=== PATIENT | female | born 1960 | race Caucasian/White ===

== ENCOUNTER 2017-06-20 11:26 | Outpatient (CLI) | payer BC ==
[2017-06-20 12:33] LABS: Hematocrit 35.7 % (36.0-47.0); Macrocytosis MODERATE=16-30 cells (100X) (0-5/hpf); Mean Platelet Volume 6.5 fL (7.4-10.4); Neutrophil 51 % (42-75); Reactive Lymphocytes 1 % (0-10); Red Blood Cell (RBC) Count 3.42 mill/uL (4.20-5.40); White Blood Cell (WBC) Count 4.1 thou/uL (4.8-10.8)
[2017-06-20 12:40] LABS: Anion Gap 8 mmol/L (10-20); BUN (Urea Nitrogen) 14 mg/dL (9.8-20.1); Calc. Creatinine Clearance 0 mL/min (70-130); Calcium 9.4 mg/dL (7.8-10.44); Carbon Dioxide 33 mmol/L (22-29); Chloride 102 mmol/L (98-107); Estimated GFR-MDRD Greater than 90
== END 2017-06-20 11:27 | disposition home or self-care (01) ==
LOC: LABBT 11:26
PROVIDERS: ATTEND Surgery
DX: Z01.812 Encounter for preprocedural laboratory examination (principal); C50.919 Malignant neoplasm of unspecified site of unspecified female breast
CPT/HCPCS: 80048; 85025

== ENCOUNTER 2017-06-21 06:04 | Day surgery (SDC) | payer BC ==
[2017-06-21] MEDS ORDERED: Midazolam HCl 2 mg/2 ml Vial ONE (06:36)
[2017-06-21] MEDS ORDERED: Fentanyl 100 MCG/2 ML VIAL ONE ×2 (06:36)
[2017-06-21] MEDS ORDERED: Clindamycin/D5W 900 mg/50 ml Premix Bag ONE (07:14)
[2017-06-21] MEDS ORDERED: Levofloxacin 500 mg/D5W 100 ml Premix Bag ONE (07:15)
[2017-06-21] MEDS ORDERED: Bupivacaine PF 0.5% 30 ML VIAL ONE (07:39)
[2017-06-21] MEDS ORDERED: Ketorolac Tromethamine 30 MG/ML VIAL ONE (07:40)
[2017-06-21] MEDS ORDERED: Metoclopramide HCl 10 MG/2 ML VIAL ONE (07:40)
[2017-06-21] MEDS ORDERED: diphenhydrAMINE 50 MG/ML VIAL ONE (07:40)
[2017-06-21] MEDS ORDERED: Dexamethasone 20 MG/5 ML VIAL ONE (07:40)
[2017-06-21] MEDS ORDERED: Propofol 200 MG/20 ML VIAL ONE (07:40)
[2017-06-21] MEDS ORDERED: ePHEDrine/0.9% NaCl/PF SYRINGE 50 mg/10 ml ONE (07:40)
[2017-06-21] MEDS ORDERED: Ondansetron HCl/PF 4 MG/2 ML Vial ONE (07:40)
[2017-06-21] MEDS ORDERED: Lidocaine 1% PF 5 ML VIAL ONE (07:40)
[2017-06-21] MEDS ORDERED: Dextrose 50% Abboject 50 ML SYRINGE SLOW IVP PRN (11:17)
[2017-06-21] MEDS ORDERED: hydrALAZINE 20 MG/ML VIAL SLOW IVP PRN (11:17)
[2017-06-21] MEDS ORDERED: Dextrose 5% in Water 1,000 ML IV PRN (11:17)
[2017-06-21] MEDS ORDERED: Ondansetron HCl/PF 4 MG/2 ML Vial IVP PRN (11:17)
[2017-06-21] MEDS ORDERED: Promethazine HCl 25 MG/ML VIAL IM PRN (11:17)
--- NOTE | 2017-06-21 12:26 | OP ---
DATE OF PROCEDURE: 06/21/2017 PREOPERATIVE DIAGNOSIS: Right breast cancer, locally invasive, status post lumpectomy with positive margins and subsequent chemotherapy. POSTOPERATIVE DIAGNOSIS: Right breast cancer, locally invasive, status post lumpectomy with positiv e margins and subsequent chemotherapy. PROCEDURE: Bilateral simple mastectomy. SURGEON: Asad Stockton M.D. ANESTHESIA: General. ESTIMATED BLOOD LOSS: Minimal. COMPLICATIONS: None. SPECIMEN: Right and left breast marked with two short superior, one long lateral and sent to path f or final diagnosis. INDICATION: The patient is a 56-year-old female who had previously presented with core biopsy prove n lobular carcinoma of the right breast. She underwent lumpectomy after needle localization. Lumpe ctomy revealed multiple positive margins. She was also found to have multiple lymph nodes positive in her right axilla on her axillary node dissection. A sentinel node biopsy had failed given the ex tent of malignant disease in the axilla. She subsequently underwent chemotherapy prior to this comp letion mastectomy. TECHNIQUE: The patient was taken to the operating room and placed supine on the table. After gener al anesthetic was obtained, bilateral chest were prepped and draped in a sterile fashion. An ellipt ical incision was used to ellipse out the nipple areolar complex on the left. Flaps are raised supe rior to the clavicle, medial to the sternum, inferior to the inframammary fold, lateral to latissimu s dorsi. The breast tissue was taken off the chest with the pectoralis fascia. The muscle was left intact underneath. Meticulous hemostasis was obtained. The wound was irrigated. A 19 round drain brought out through a separate stab incision and sewn in place using silk. The mastectomy site was closed using 3-0 Vicryl, 4-0 Monocryl, and Dermabond. Similar elliptical incision was used to perf orm on the right. The previous lumpectomy scar was excised with the specimen and again flaps were r aised inferior to inframammary fold, laterally to the latissimus dorsi, superior to the clavicle and medially to the sternum. The patient's previous MediPort was encountered in the upper flap and thi s was removed from underneath. The tunnel going up towards the neck was oversewn using Vicryl sutur e. Again, the breast was taken off the chest wall, taking the fascia with it, but leaving the muscl e intact underneath. The right mastectomy cavity is irrigated using sterile solution. A 19 round d rain brought out through a separate stab incision and sewn in place using silk. The wound was close d using 3-0 Vicryl, 4-0 Monocryl, and Dermabond. The patient was en route to recovery in stable con dition. All instrument counts, needle counts, and lap counts were correct.
[2017-06-21] MEDS: D5 1/2 NS w/20 mEq KCL 1,000 ML IV SCH (13:18)
[2017-06-21] MEDS ORDERED: Fentanyl 5000 MCG/250 ML CADD IV PRN (13:53)
[2017-06-21] MEDS ORDERED: Naloxone HCl 0.4 mg/ml Vial IV PRN (13:53)
[2017-06-21 16:14] VITALS: BMI 27.6
[2017-06-21] MEDS: Acetaminophen 325 MG TAB PO SCH ×2 (18:12→23:03)
[2017-06-21] MEDS: Famotidine 20 MG TAB PO SCH ×2 (22:18→22:25)
[2017-06-21] MEDS ORDERED: diphenhydrAMINE 50 MG/ML VIAL IVP PRN (22:50)
[2017-06-21] MEDS ORDERED: diphenhydrAMINE 25 MG CAP PO PRN (22:50)
[2017-06-22] MEDS: D5 1/2 NS w/20 mEq KCL 1,000 ML IV SCH (02:27)
[2017-06-22] MEDS: Acetaminophen 325 MG TAB PO SCH (06:43)
[2017-06-22 08:37] VITALS: BP 113/75; TEMP 97.8
[2017-06-22] MEDS: Famotidine 20 MG TAB PO SCH ×2 (09:32→09:34)
[2017-06-22] MEDS ORDERED: HYDROcodone/Acetaminophen 10/325 mg Tablet PO PRN ×2 (09:47)
== END 2017-06-22 11:33 | disposition home or self-care (01) ==
LOC: SDC 06:04 → SURG A 09:41 → SDC 06-22 11:33
PROVIDERS: ATTEND Surgery
PROC: 0JPT0WZ Removal of Totally Implantable Vascular Access Device from Trunk Subcutaneous Tissue and Fascia, Open Approach (ICD-10-PCS; principal; 2017-06-22)
PROC: 0HBV0ZZ Excision of Bilateral Breast, Open Approach (ICD-10-PCS; principal; 2017-06-22)
DX: C50.911 Malignant neoplasm of unspecified site of right female breast (principal); I10 Essential (primary) hypertension; M19.90 Unspecified osteoarthritis, unspecified site; Z90.710 Acquired absence of both cervix and uterus; Z98.84 Bariatric surgery status; Z98.890 Other specified postprocedural states; Z82.49 Family history of ischemic heart disease and other diseases of the circulatory system; Z80.1 Family history of malignant neoplasm of trachea, bronchus and lung
CPT/HCPCS: 88307; J0131; J1100; J1200; J1885; J1956; J2001; J2250; J2405; J2704; J2765; J3010; J3490; S0020

== ENCOUNTER 2017-11-02 11:31 | Day surgery (SDC) | payer BC, OTHER ==
[2017-11-01 12:11] VITALS: BMI 26.9
[2017-11-02] MEDS ORDERED: Sodium Chloride 0.9% 20 ML ONE (11:55)
[2017-11-02] MEDS ORDERED: EPINEPHrine 1 MG/ML AMP ONE ×2 (11:55→15:32)
[2017-11-02] MEDS ORDERED: Gentamicin 80 MG/2 ML VIAL ONE (11:55)
[2017-11-02] MEDS ORDERED: Bupivacaine/Epinephrine 0.25% 30 ML VIAL ONE (11:55)
[2017-11-02] MEDS ORDERED: Heparin 5,000 UNITS/ML VIAL ONE (11:59)
[2017-11-02] MEDS ORDERED: CEFAZOLIN/Water 2 GM/20 ML SYRINGE ONE (12:17)
[2017-11-02] MEDS ORDERED: Fentanyl 250 MCG/5 ML VIAL ONE ×2 (12:25→13:32)
[2017-11-02] MEDS ORDERED: Midazolam HCl 2 mg/2 ml Vial ONE (12:25)
[2017-11-02] MEDS ORDERED: Fentanyl 100 MCG/2 ML VIAL IV PRN (12:38)
[2017-11-02] MEDS ORDERED: Ondansetron HCl/PF 4 MG/2 ML Vial IVP PRN (12:38)
[2017-11-02] MEDS ORDERED: HYDROcodone/Acetaminophen 10/325 mg Tablet PO PRN ×2 (12:38)
[2017-11-02] MEDS ORDERED: Ropivacaine 0.2% 550 ML 550 ML NERVE BLCK SCH ×2 (12:38→12:45)
[2017-11-02] MEDS ORDERED: Zolpidem Tartrate 5 MG TAB PO PRN (12:38)
[2017-11-02] MEDS ORDERED: traMADol HCl 50 MG TAB PO PRN ×2 (12:38)
[2017-11-02] MEDS ORDERED: Promethazine HCl 25 MG/ML VIAL IM PRN (12:38)
[2017-11-02] MEDS ORDERED: Ropivacaine 0.2% HCl/PF 20 ML ONE ×2 (14:02)
[2017-11-02] MEDS ORDERED: Lidocaine 1% (PF) 30 ML VIAL ONE (15:32)
[2017-11-02] MEDS ORDERED: Bupivacaine 0.25% HCL 30 ML VIAL ONE (15:32)
[2017-11-02] MEDS ORDERED: Bacitracin Zinc Ointment 30 gm TUBE ONE (15:58)
[2017-11-02] MEDS ORDERED: HYDROcodone/Acetaminophen 5/325 mg Tablet ONE (20:41)
--- NOTE | 2017-11-02 22:03 | OP ---
DATE OF PROCEDURE: 11/02/2017 PREOPERATIVE DIAGNOSES: 1. Breast cancer. 2. Status post bilateral mastectomy. PROCEDURE: Bilateral breast augmentation. OPERATIVE FINDINGS: 1. Right breast implant, Laura Reyes reference number # [id number], serial number #[id number]. 2. Left breast implant, Laura Reyes reference number #[id number], serial number #[id number]. 3. Breast reconstruction ended at 1555 hours. PROCEDURE IN DETAIL: Following induction of adequate anesthesia, the patient was prepped and draped in the usual sterile fashion in the supine position. Attention was first turned to the right breast. An inframammary crease incision was made. Dissection was carried sharply down through the subcutan eous tissue to the underlying pectoralis fascia. The muscle was incised and then inspected. There d id not appear to be any visible radiation damage to the muscle. It was supple. A submuscular pocket was then elected to be created. An adequate submuscular pocket was created with release of the infe rior attachments of the pectoralis major muscle. On the right side, hemostasis included clipping one large intercostal foot orthopedist. The pocket was copiously irrigated and inspected for meticulous hemos tasis prior to placement of sizer. The sizer was used to determine what implant could be what it was the best implant for the patient. The above was selected. Similar procedure was done on the contra lateral left side. Same size implant was chosen. Prior to placement of the implants, the pockets we re copiously irrigated with dilute antibiotic solution followed by dilute Betadine solution. The ski n barrier was placed. New gloves were donned prior to placement of the implant. The pockets were re inspected for meticulous hemostasis prior to closure with 3-0 PDS suture and 3-0 Monocryl suture. De rmabond dressing was placed.
--- NOTE | 2017-11-03 00:31 | OP ---
DATE OF PROCEDURE: 11/02/2017 PREOPERATIVE DIAGNOSES: 1. Massive weight loss. 2. Facial aging. PROCEDURE: Facelift. PROCEDURE IN DETAIL: At the conclusion of the breast reconstruction at 1555, the facelift was begun. Due to the patient's massive weight loss, a direct neck lift approach was chosen for her cervical l axity. Ellipse of skin was excised from the midline neck. A Z-plasty was designed elevating the ski n in the plane just above the platysma. The flaps were transposed and then inset using 3-0 Monocryl suture. Skin edges were closed with 3-0 Prolene suture after the field was copiously irrigated and i nspected for meticulous hemostasis. Attention was turned to the cheek portion of the lower facelift. A preauricular incision was made. Care was taken to elevate a subcutaneous flap. This mass was then plicated with a loop to the jowls using 3-0 Ethibond suture. A lateral SMAS plication was then performed using interrupted and running 3-0 PDS suture. The excess skin was marked and excised. The skin flap was inset using 4-0 Monocryl suture and 6-0 Prolene suture. The patient tolerated the procedure well. A similar procedure was d one on each side. Prior to closure, drains were placed. The field was copiously irrigated and inspe cted for meticulous hemostasis.
== END 2017-11-02 21:47 | disposition home or self-care (01) ==
LOC: SDC 11:31
PROVIDERS: ATTEND Plastic Surgery
PROC: 0W060ZZ Alteration of Neck, Open Approach (ICD-10-PCS; principal; 2017-11-02)
PROC: 0H0V0JZ Alteration of Bilateral Breast with Synthetic Substitute, Open Approach (ICD-10-PCS; principal; 2017-11-02)
DX: Z41.1 Encounter for cosmetic surgery (principal); Z88.0 Allergy status to penicillin; Z90.13 Acquired absence of bilateral breasts and nipples; Z85.3 Personal history of malignant neoplasm of breast
CPT/HCPCS: A4216; A4306; J0131; J0171; J1580; J1644; J2001; J2250; J2795; J3010; J3370; J3490; S0020

== ENCOUNTER 2017-11-28 16:48 | Observation (INO) | payer BC ==
[2017-11-28] MEDS ORDERED: diphenhydrAMINE 50 MG/ML VIAL ONE (19:13)
[2017-11-28] MEDS ORDERED: Metoclopramide HCl 10 MG/2 ML VIAL ONE (19:13)
[2017-11-28 22:52] VITALS: BMI 25.3
[2017-11-28] MEDS ORDERED: Acetaminophen 325 MG TAB PO PRN (23:04)
[2017-11-28] MEDS ORDERED: Ondansetron HCl/PF 4 MG/2 ML Vial IVP PRN (23:04)
[2017-11-28] MEDS ORDERED: Ondansetron ODT 4 MG TAB SL PRN (23:04)
[2017-11-29] MEDS ORDERED: Calcium Carbonate 500 MG ChewTAB PO PRN (01:57)
[2017-11-29] MEDS ORDERED: Acetaminophen 325 MG TAB PO PRN (01:57)
[2017-11-29] MEDS ORDERED: Ondansetron ODT 4 MG TAB PO PRN (01:57)
[2017-11-29] MEDS ORDERED: Ondansetron HCl/PF 4 MG/2 ML Vial IVP PRN (01:57)
[2017-11-29] MEDS ORDERED: Senokot 8.6 MG TAB PO PRN (01:57)
[2017-11-29] MEDS ORDERED: cloNIDine 0.1 MG TAB PO PRN ×2 (02:02→02:05)
--- NOTE | 2017-11-29 02:24 | HP ---
DATE OF ADMISSION: 11/28/2017. Patient was seen and examined on 11/28/17 PRIMARY CARE PHYSICIAN: Dr. Mills. PRIMARY ONCOLOGIST: Dr. Stapleton. CHIEF COMPLAINT: Stroke-like symptoms. HISTORY OF PRESENT ILLNESS: Patient is a 57-year-old female with breast cancer who presented to the emergency room with 3-day onset of stroke-like symptoms. She was unable to move the right side of her tongue. She also had some headache that was more or less constant on the right side without any aggravating or relieving factor. No double vision, blurring of vision, facial asymmetry, weakness, numbness of any of her extremities reported. She denies any seizures, photophobia, phonophobia, increased lacrimation, seizure, tongue biting or urinary or bladder incontinence. No chest pain, palpitations, nausea , vomiting, lightheadedness or syncope reported. In the emergency room, her initial vital signs showed temperature 98.5, respirations 18, pulse rate of 86 with a blood pressure of 130/110. CT scan of the brain at [facility] was consistent with possible metastatic disease. There were no intracranial findings. She received 600 mg of Motrin in the Emergency Room and was transferred to this facility for hospital admission. PAST MEDICAL HISTORY: Breast cancer. PAST SURGICAL HISTORY: 1. Gastric sleeve. 2. Bladder mesh. 3. Facial lift. 4. Bilateral mastectomy followed by augmentation. 5. Hysterectomy. 6. Gastric surgery. ALLERGIES: PENICILLIN. CURRENT HOME MEDICATIONS: Anastrozole 1 mg daily, Lasix 20 mg daily, ranitidine 150 mg as needed, tizanidine as needed. SOCIAL HISTORY: Patient currently lives at home. No smoking, daily alcohol or drug use reported. She drinks alcohol socially. FAMILY HISTORY: Negative for premature coronary artery disease. REVIEW OF SYSTEMS: The following complete review of systems was negative, unless otherwise mentioned in the HPI or below: Constitutional: Weight loss or gain, ability to conduct usual activities. Skin: Rash, itching. Eyes: Double vision, pain. ENT/Mouth: Nose bleeding, neck stiffness, pain, tenderness. Cardiovascular: Palpitations, dyspnea on exertion, orthopnea. Respiratory: Shortness of breath, wheezing, cough, hemoptysis, fever or night sweats. Gastrointestinal: Poor appetite, abdominal pain, heartburn, nausea, vomiting, constipation, or diarrhea. Genitourinary: Urgency, frequency, dysuria, nocturia. Musculoskeletal: Pain, swelling. Neurologic/Psychiatric: Anxiety, depression. Allergy/Immunologic: Skin rash, bleeding tendency. PHYSICAL EXAMINATION: VITAL SIGNS: As discussed above. Her blood pressure at this time is 120/75. GENERAL: A 57-year-old female in no apparent distress. HEENT: Head is atraumatic, normocephalic. Sclerae are anicteric. Moist mucous membranes. No oral lesion. NECK: Supple, no JVD, no carotid bruit. LUNGS: Clear to auscultation bilaterally, no wheezing, rales or rhonchi. HEART: S1, S2 present. Regular rate and rhythm. No murmur, rubs, or gallops appreciated. ABDOMEN: Soft, nontender, bowel sounds present. No rebound or guarding. EXTREMITIES: No edema or calf tenderness. NEUROLOGIC: Cranial nerves II-XII were normal on examination except for some difficulty moving the tongue to the right. She denies any sensory deficits. Power was 5/5 in all extremities. Sensation to touch was normal bilaterally. PSYCHIATRIC: The patient is alert, awake, oriented x3. Normal affect. SKIN: Warm and dry. LYMPH NODES: No palpable lymph nodes in the neck. PERIPHERAL VASCULAR: Radial pulses palpable bilaterally. MUSCULOSKELETAL: No joint swelling or tenderness. LABORATORY FINDINGS: CBC showed WBC 5.3 with hemoglobin 12.8, MCV was elevated at 101, platelets 150. Chemistries showed sodium 142, potassium 4.5, chloride 105, bicarbonate 29, BUN 10, creatinine 0.63. IMAGING: CT scan of the brain by my review as discussed above. There were no intracranial masses appreciated. EKG by my review showed sinus rhythm without significant ST-T wave changes. IMPRESSION: 1. Suspected transient ischemic attack versus symptoms secondary to metastatic disease in the brain. 2. History of breast cancer status post bilateral mastectomy. 3. Back pain, currently on tizanidine per PCP. 4. Elevated blood pressure. Her blood pressure improved without any intervention. 5. Headache, probably secondary to suspected brain mets. PLAN: The patient will be monitored in the stroke unit. We will obtain MRI of the brain with the contrast. Depending on the MRI, we will either consult Neurology or Oncology. We will start her on low dose aspirin. Fasting lipid profile will be obtained. Plan of care was discussed with the patient. She stated understanding. Echocardiogram will be obtained as well. [facility]ITALAnna
[2017-11-29] MEDS: HYDROcodone/Acetaminophen 5/325 mg Tablet PO PRN ×4 (04:54→20:21)
[2017-11-29 05:54] LABS: Cardiac Risk 2.7 (Less than 4.5)
[2017-11-29] MEDS ORDERED: Aspirin 81 mg Enteric Coated Tablet PO SCH (09:00)
[2017-11-29] MEDS ORDERED: ALPRAZolam 0.25 MG TAB PO SCH (10:00)
--- NOTE | 2017-11-29 13:46 | CON ---
DATE OF CONSULTATION: 11/29/2017 REASON FOR CONSULTATION: Breast cancer. HISTORY OF PRESENT ILLNESS: Ms. Metzger is a pleasant 57-year-old female who recently completed jane atment for invasive lobular carcinoma of the right breast. She completed chemotherapy with Adriamyci n, Cytoxan and Taxol, and had a bilateral mastectomy in 06/2017. She had radiation post-surgical and was started on Arimidex. She had breast reconstruction with the facelift on 11/02/2017. She states she has had facial numbness on the right side since the surgery. Approximately 5 days ago, she bega n to have right tongue dysfunction, having difficulty with swallowing foods and controlling her secre tions. She also developed a headache that was unresponsive to Motrin, so she presented to the emerge ncy room in [place] for evaluation. A CT scan was performed which showed no acute intracranial tai ges. There was a possible bony mets to the right frontal and right parietal area near the vertex of the right and just left of the midline of the left frontal bone. Images are not available. She was transferred to this facility for a possible CVA and further imaging. Currently, she still has a head ache. It is improved with hydrocodone. She denies any blurred vision, facial droop, speech changes, difficulty thinking, no neuromuscular issues in her extremities. She has had occasional dizziness o heather the last few months, but no fall. She denies any shortness of breath. No chest pain. She is ross ving no abdominal issues. PAST MEDICAL HISTORY: 1. ER positive 32%, MN negative, HER-2 negative, invasive lobular carcinoma of the right breast, sta tus post chemoradiation and mastectomy. 2. Hypertension. 3. Arthritis. 4. High cholesterol. 5. Acid reflux. PAST SURGICAL HISTORY: 1. Bilateral mastectomy. 2. Recent breast reconstruction and facelift in 10/2017. 3. Gastric sleeve. 4. Bladder mesh. 5. Hysterectomy. ALLERGIES: PENICILLIN. HOME MEDICATIONS: 1. Anastrozole daily. 2. Zyrtec p.r.n. 3. Lasix 20 mg daily. 4. Zantac 150 mg daily. 5. Tizanidine p.r.n. FAMILY HISTORY: Her mother had lung cancer. Her aunt had breast cancer. SOCIAL HISTORY: , has 2 children, lives with her spouse, social drinker. No illicit drug use . No tobacco use. REVIEW OF SYSTEMS: Twelve point review of systems is negative except for noted in HPI. PHYSICAL EXAMINATION: VITAL SIGNS: Temperature is 97.8, pulse is 82, respiratory rate 20, BP is 128/74. She is 98% on kristina m air. GENERAL: Well-developed, well-nourished female, in no acute distress. HEENT: Normocephalic, atraumatic. Pupils equal and reactive to light. NECK: Supple. CARDIOVASCULAR: Regular rate and rhythm. LUNGS: Clear. ABDOMEN: Soft, nontender, bowel sounds are positive. EXTREMITIES: No clubbing, cyanosis or edema. SKIN: No rash. HEMATOLOGIC: No petechia or purpura. NEUROLOGIC: She has some difficulty moving her tongue. No other neurological deficits noted. PSYCHIATRY: She is alert and oriented and appropriate. PERTINENT LABORATORY AND X-RAYS: Current WBC from lab in [place] show a white count of 7.8, hemoglo bin 14.6, hematocrit 44.3, platelet count is 181,000. Her sodium is 143, potassium 3.4, chloride 104 , CO2 is 26, BUN 13, creatinine 0.68. Radiology per HPI. IMPRESSION: 1. Right tongue dysfunction. 2. Invasive lobular carcinoma of the right breast, status post chemoradiation and surgery. 3. Recent facelift with a right facial tingling. 4. Questionable bony metastases of the skull. 5. Headache. DISCUSSION: The patient will have an MRI of the brain to rule out both CVA and bony mets. There are no intracranial lesions on CT scan. She has been given hydrocodone to control her headache. She ross s been able to eat and take her medications today. Further treatment options based on MRI results. Thank you for the consult. We will follow her closely.
--- NOTE | 2017-11-29 17:42 | MRI ---
MRI OF BRAIN WITH AND WITHOUT CONTRAST: 11/29/17 Multiplanar and multisequential imaging of the brain obtained. HISTORY: TIA. There is a history of breast cancer with possible metastasis. Comparison made to head CT of 11/28/17. That exam revealed evidence of bony metastatic lesions to the s kull. FINDINGS: Ventricles have normal size and position. There is some mild white matter hyperintensities which may represent mild ischemic change. No evidence of intraparenchymal mass or edema. There is no evidence o f restricted diffusion. No abnormal enhancement seen within the brain. There are numerous areas of abnormal signal seen in the skull. On the right, involving the right fron jasmina bone, there is a expansile lytic lesion which on the axial plane measures 1.8 cm AP dimension x 4 cm width. This exhibits some epidural expansion and abuts the cortex. There are other areas of abnor mal signal within the skull involving right frontal bone and right parietal bone. These areas all eric w enhancement consistent with metastatic lesions. There is also a focus of abnormal signal seen in th e anterior left frontal bone. The intracranial internal carotid arteries and cerebral arteries show flow voids. Dural venous sinuse s appear patent. The paranasal sinuses appear clear. IMPRESSION: 1. No acute brain abnormality. 2. Numerous foci of signal abnormality involving the skull consistent with osseous metastasis. O ne lesion involving the right frontal bone has expansile properties with epidural extension and abutt ing the frontal lobe cortex. POS: [facility]
--- NOTE | 2017-11-29 19:46 | PDOC.PN ---
- Subjective Encounter Start Date: 11/29/17 Encounter Start Time: 19:30 Subjective: f/u for stroke-like sx of R tongut incoordination but MRI shows multiple -: foci of metastatic process due to breast cancer. - Objective Resuscitation Status: Resuscitation Status FULL:Full Resuscitation MAR Reviewed: Yes Vital Signs & Weight: Vital Signs (12 hours) Temp Pulse Resp BP Pulse Ox 11/29/17 15:22 99.4 F 108 H 18 129/77 11/29/17 12:28 99.5 F 80 20 137/83 96 11/29/17 08:03 97.8 F 82 20 128/74 98 11/29/17 08:00 97.8 F 82 20 Weight Weight 146 lb 4.8 oz I&O: 11/28/17 11/29/17 11/30/17 06:59 06:59 06:59 Intake Total 350 Output Total 2 Balance 350 -2 Radiology Reviewed by me: Yes (MRI Brain -multiple foci of osseous metastatic process) EKG Reviewed by me: Yes (Tele - SR) Phys Exam - Physical Examination Constitutional: NAD HEENT: PERRLA, oral pharynx no lesions Neck: no JVD, supple Respiratory: no wheezing, clear to auscultation bilateral Cardiovascular: RRR Gastrointestinal: soft, non-tender, no distention, positive bowel sounds Musculoskeletal: no edema, pulses present Neurological: normal sensation, moves all 4 limbs Psychiatric: A&O x 3 Skin: normal turgor, cap refill <2 seconds Dx/Plan - Plan * .
[2017-11-29 20:11] VITALS: BP 100/61; TEMP 98.4
[2017-11-29] MEDS ORDERED: Atorvastatin Calcium 10 MG TAB PO SCH (21:00)
--- NOTE | 2017-11-30 05:29 | DIS ---
DATE OF ADMISSION: 11/28/2017 DATE OF DISCHARGE: 11/29/2017 DISCHARGE DIAGNOSES: 1. 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 2. History of invasive lobular carcinoma of the right breast, status post chemotherapy and radiation with mastectomy. 3. Hypertension, stable. 4. Dyslipidemia. 5. Headache secondary to #1. 6. Right tongue paresthesia secondarily to #1. CONSULTATIONS: Medical Oncology Service. PERTINENT LABORATORY AND X-RAY FINDINGS: Complete metabolic profile within normal limits. Total cho lesterol 188, triglycerides 45, HDL 70, LDL 109. CBC showed a white blood cell count of 5.3, hemoglo bin 13, hematocrit 37, MCV 101, platelet count [address] of the brain without contrast dated 11/28/2017 showed no acute intracranial process. Multiple permeative lesions of the skull suggestive of metastatic process. MRI of the brain dated 11/29/2017 showed multiple osseous me tastatic lesions involving the right frontal bone with expansile properties with epidural extension a butting the frontal lobe cortex. A 2D transthoracic echocardiogram dated 11/29/2017 showed preserved ejection fraction of 55-60%. Rest of the exam was unremarkable. HOSPITAL COURSE: The patient was observed on the stroke unit after initially presenting with right tongue paresthesias and concern for TIA. The patient underwent neuro imaging to include CT and MRI modalities showing e vidence of multiple osseous metastatic process consistent with history of breast carcinoma. No speci fic evidence to suggest intracranial process or mass effect. No specific evidence to suggest an acut e CVA. The patient was given general supportive measures including pain control. Currently, patient with stable vital signs and tolerating regular oral intake. I have examined the patient at the time of discharge and discussed radiological findings and need for followup with Medical Oncology Service . The patient verbalizes understanding and agreement. We will follow up with her primary oncologist , Dr. Stapleton on 12/03/2017. DISCHARGE MEDICATIONS: 1. Arimidex 1 mg p.o. daily. 2. Calcium carbonate 500 mg 1 to 2 tabs p.o. q.i.d. p.r.n. 3. Vitamin D3 of 5000 units p.o. daily. 4. Ferrous gluconate 324 mg p.o. daily. 5. Lasix 20 mg 1 tab p.o. daily. 6. Ranitidine 150 mg p.o. daily. 7. Tizanidine 2 mg p.o. daily p.r.n. muscle spasms. 8. Tramadol 50 mg p.o. q.i.d. p.r.n. pain. FOLLOWUP: The patient may follow up with her primary care provider, Dr. Chriss Mills within 7 day s of discharge. The patient may follow up with Dr. Nat Stapleton on 12/03/2017. CONDITION ON DISCHARGE: Stable. ACTIVITY: Ad lynda. DIET: Regular. CODE STATUS: FULL. DISPOSITION: Home on 11/29/2017.
--- NOTE | 2017-12-02 00:27 | EKG ---
Test Reason : Blood Pressure : / mmHG Vent. Rate : 078 BPM Atrial Rate : 078 BPM P-R Int : 168 ms QRS Dur : 088 ms QT Int : 372 ms P-R-T Axes : 052 015 058 degrees QTc Int : 424 ms Normal sinus rhythm Normal ECG Confirmed by RAFFI MOCK ([id number]), state editor AIDAN HERNANDEZ ([id number] on 12/02/2017 12:25:31 AM Referred By: Confirmed By:RAFFI MOCK
== END 2017-11-29 20:34 | disposition home or self-care (01) ==
LOC: ERS 16:48 → 2SE 22:07
PROVIDERS: ADMIT Internal Medicine; ATTEND Internal Medicine
DX: I10 Essential (primary) hypertension; Z80.1 Family history of malignant neoplasm of trachea, bronchus and lung; Z90.13 Acquired absence of bilateral breasts and nipples; R51 Headache; Z88.0 Allergy status to penicillin; K21.9 Gastro-esophageal reflux disease without esophagitis; Z92.21 Personal history of antineoplastic chemotherapy; Z98.84 Bariatric surgery status; E78.5 Hyperlipidemia, unspecified; C79.51 Secondary malignant neoplasm of bone; R20.2 Paresthesia of skin; M19.90 Unspecified osteoarthritis, unspecified site; Z79.899 Other long term (current) drug therapy; Z85.3 Personal history of malignant neoplasm of breast; Z98.890 Other specified postprocedural states
CPT/HCPCS: 36415; 70553; 80061; 93005; 93306; 96361; 96374; 96375; G0378; J1200; J2765

== ENCOUNTER 2018-01-10 07:02 | Day surgery (SDC) | payer BC ==
[2018-01-09 15:06] VITALS: BMI 26.5
[2018-01-10] MEDS ORDERED: PROPOFOL 200 MG/20 ML VIAL ONE (08:46)
[2018-01-10] MEDS ORDERED: Ondansetron HCl/PF 4 MG/2 ML Vial ONE ×2 (08:46→09:01)
[2018-01-10] MEDS ORDERED: Lidocaine 1% PF 5 ML VIAL ONE (08:46)
[2018-01-10] MEDS ORDERED: Bupivacaine/Epinephrine 0.25% 30 ML VIAL ONE ×3 (08:47→09:43)
[2018-01-10] MEDS ORDERED: Lidocaine 2% 10 ML INJ ONE (08:47)
[2018-01-10] MEDS ORDERED: Fentanyl 100 MCG/2 ML VIAL ONE (08:52)
[2018-01-10] MEDS ORDERED: PROPOFOL 40 ML ONE (08:52)
[2018-01-10] MEDS ORDERED: Midazolam HCl 2 mg/2 ml Vial ONE (08:52)
[2018-01-10] MEDS ORDERED: Levofloxacin 500 mg/D5W 100 ml Premix Bag ONE (08:57)
--- NOTE | 2018-01-10 11:34 | RAD ---
SINGLE VIEW OF THE ABDOMEN: Comparison: None. History: Mediport placement. FINDINGS: Single view of the chest shows a normal sized cardiomediastinal silhouette. There is a right IJ Medip ort with its tip in the superior vena cava. No pneumothorax is seen. There appears to be a calcified granuloma projecting over the right thorax. There is no evidence of pleural effusion. IMPRESSION: Status post Mediport placement without evidence of complication. POS: [facility]
== END 2018-01-10 11:28 | disposition home or self-care (01) ==
LOC: SDC 07:02
PROVIDERS: ATTEND Surgery
PROC: 0JH63WZ Insertion of Totally Implantable Vascular Access Device into Chest Subcutaneous Tissue and Fascia, Percutaneous Approach (ICD-10-PCS; principal; 2018-01-10)
DX: C50.911 Malignant neoplasm of unspecified site of right female breast (principal); C79.51 Secondary malignant neoplasm of bone; I10 Essential (primary) hypertension; M19.90 Unspecified osteoarthritis, unspecified site; E78.00 Pure hypercholesterolemia, unspecified; Z17.0 Estrogen receptor positive status [ER+]; Z88.0 Allergy status to penicillin
CPT/HCPCS: 71045; C1769; C1788; J1642; J1956; J2001; J2250; J2405; J2704; J3010

== ENCOUNTER 2018-02-26 13:23 | Outpatient (CLI) | payer BC ==
--- NOTE | 2018-02-26 15:57 | PET ---
PET CT: 01/27/18 HISTORY: 57-year-old female with invasive lobular carcinoma of the right breast with metastatic carcinoma invo lving 8 out of 8 right axillary lymph nodes, status post bilateral mastectomy. Last chemotherapy was on 01/23/18 and radiation therapy to the head on 01/28/18. TECHNIQUE: PET scan with CT attenuation was performed from the base of the brain to the proximal thighs followin g the intravenous administration of 10.7 millicuries of 15-fluorodeoxyglucose in the right hand. Imag ing was performed after an uptake interval of 49 minutes. COMPARISON: PET CT dated 12/26/16. FINDINGS: No lenard hypermetabolism is seen in the neck, mediastinum, hilar, internal mammary, axillary, abdomin opelvic lymph nodes. No hypermetabolic pulmonary nodules, liver or adrenal lesions are seen. Interval development of numerous new foci of increased FDG localization was seen in the skeleton incl uding the sternum, left scapula, bilateral proximal humeri, bilateral ribs, thoracic spine and pelvis . Physiologic activity is noted in the GI and tracts and the visualized portions of the brain. The CT scan used for attenuation correction demonstrates no evidence of pleural effusions or ascites. Bilateral breast reconstruction has been performed in the interim. IMPRESSION: Interval development of widespread osseous metastatic disease since 12/26/16. POS: [facility]
== END 2018-02-26 13:24 | disposition home or self-care (01) ==
LOC: PET 13:23
PROVIDERS: ATTEND Internal Medicine Hematology & Oncology
DX: C50.511 Malignant neoplasm of lower-outer quadrant of right female breast (principal); C79.51 Secondary malignant neoplasm of bone
CPT/HCPCS: 78815; A9552

== ENCOUNTER 2018-04-02 15:40 | Inpatient (IN) | payer BC ==
[2018-04-02] MEDS: Sodium Chloride 0.9% 1,000 ML IV SCH (17:05)
[2018-04-02] MEDS ORDERED: traMADol HCl 50 MG TAB PO PRN (18:00)
[2018-04-02] MEDS ORDERED: Calcium Carbonate 500 MG ChewTAB PO PRN (18:00)
[2018-04-02] MEDS ORDERED: Loratadine 10 MG TAB PO PRN (18:15)
[2018-04-02] MEDS ORDERED: Bisacodyl 5 MG TAB PO PRN (18:32)
[2018-04-02] MEDS ORDERED: Prochlorperazine Maleate 5 MG TAB PO PRN (18:47)
[2018-04-02] MEDS ORDERED: Ondansetron PF 4 MG/2 ML Vial IVP PRN (18:50)
--- NOTE | 2018-04-02 19:13 | HP ---
PRIMARY CARE PHYSICIAN: Rajendra Mills D.O. CHIEF COMPLAINT: Abdominal pain. HISTORY OF PRESENT ILLNESS: Ms. Metzger is a pleasant 57-year-old lady who was seen at [facility] on 04/02/2018, she was sent to the hospital from her oncologist office. She reports that she has a history of right-sided breast cancer. She underwent double mastectomy, ch emotherapy and radiation therapy. She finished radiation therapy in early January. A week or 10 days l ater, she started having abdominal discomfort. She reports that the discomfort was over the right up per quadrant. She attributed it to radiation therapy that she received for the right hip. She also noticed yellowish discoloration of urine over the last few days. Over the last 7-10 days, she reports nausea as well as retching. She did not eat yesterday. Today m orning, she woke up around 8:00 a.m. and ate watermelon. This was followed by copious amounts of pako ious vomiting. She was seen in the Oncology office and had blood work done. She was found to have a bnormal liver function tests and was advised to come to the hospital. The original plan in view of her progressively worsening liver function tests over the last several d ays was to have ultrasound as an outpatient tomorrow as well as Gastroenterology service to consult a s an outpatient. She denies any fevers or chills. REVIEW OF SYSTEMS: All other systems reviewed and found to be negative. PAST MEDICAL HISTORY: Significant for right-sided breast cancer. PAST SURGICAL HISTORY: Significant for double mastectomy, MediPort, vertical gastric sleeve surgery, bladder mesh, facial lift and hysterectomy. ALLERGIES: PENICILLIN. CURRENT MEDICATIONS: Tums 1-2 tablets 4 times a day as needed, cetirizine 10 mg daily as needed, vit dyer D3 5000 units daily, ferrous gluconate 324 mg daily, furosemide 20 mg daily, [place] 10/325 mg monse ry 6 hours as needed, Zofran 8 mg every 8 hours, prochlorperazine one tablet every 4 hours as needed, ranitidine 150 mg daily as needed, tizanidine 2 mg as needed, tramadol 50 mg 4 times a day as needed . FAMILY HISTORY: Father of myocardial infarction at age 52. SOCIAL HISTORY: The patient denies tobacco use, alcohol use or recreational drug use. PHYSICAL EXAMINATION: GENERAL: Ms. Metzger is awake and alert, not in acute distress. VITAL SIGNS: Blood pressure is 127/74, pulse 101, respiratory rate 16, and oxygen saturation 97% on room air. She is afebrile. EYES: She has scleral icterus. No conjunctival pallor. ENT: Dry mucosal membranes, no oropharyngeal erythema or exudates. NECK: Supple, nontender, trachea is midline. RESPIRATORY: Accessory muscles of breathing are not active. Chest wall movements are symmetric bila terally. LUNGS: Clear to auscultation without wheeze, rhonchi or crepitations. CARDIOVASCULAR: S1 and S2 are heard, tachycardic and regular. Peripheral pulses palpable. No carot id bruit, no pericardial rub. ABDOMEN: Soft, mild right upper quadrant tenderness, Urena sign is negative, no guarding or rigidit y, bowel sounds heard. NEUROLOGIC: Cranial nerves II-XII intact, deep tendon reflexes are 2+. MUSCULOSKELETAL: Power is 5/5 in all four extremities. She has bilateral lower extremity edema. SKIN: No rashes or subcutaneous nodules. LYMPHATIC: No cervical lymphadenopathy. PSYCHIATRIC: Normal mood, normal affect, patient is oriented to person, place, and time. LABORATORY DATA: Ms. Metzger labs and investigations were reviewed. She had a white count of 5200, hemoglobin 11 and platelet count 35,000. Sodium and potassium are normal. Creatinine is low at 0.5 4. Blood urea nitrogen is normal. Total bilirubin is elevated at 4.1, direct bilirubin at 1.5, AST elevated at 262, normal ALT and alkaline phosphatase is elevated at 215. ASSESSMENT AND PLAN: Ms. Metzger is a pleasant 57-year-old lady who was seen at [facility] on 04/02/2018. Her problem list includes: 1. Abnormal liver function tests. At this point in time, the differential is still wide, includes i nfectious, malignant and other causes. Patient will be admitted to the hospital for further workup i ncluding abdominal ultrasound. Her comprehensive metabolic profile will be rechecked. Gastroenterol ogy service will be consulted. 2. Dehydration: The patient is clinically dehydrated. This is most likely secondary to poor oral i ntake. Hold furosemide and start gentle intravenous hydration for now. 3. History of breast cancer. Further management depending on the Oncology Service recommendations. 4. Nausea and vomiting. Prochlorperazine and Zofran p.r.n. Many thanks for allowing me to participate in your patient's care. Please feel free to contact me wi th any questions or concerns. LEVEL OF RISK: Moderate. LEVEL OF COMPLEXITY: Moderate.
[2018-04-02] MEDS ORDERED: tiZANidine HCl 4 MG TAB PO PRN (21:00)
[2018-04-02] MEDS ORDERED: Ondansetron ODT 8 MG TAB PO SCH (22:00)
[2018-04-02] MEDS: Famotidine 20 MG TAB PO PRN (23:42)
--- NOTE | 2018-04-03 00:02 | CON ---
DATE OF CONSULTATION: 04/02/2018 HISTORY OF PRESENT ILLNESS: Ms. Metzger is a 57-year-old female with known metastatic breast cancer with bone metastases who had a PET scan as recently as 6 or 8 weeks ago which showed no disease in t he liver. She presented to start treatment with immunotherapy approximately 10 days ago with a borde rline elevated bilirubin at 2.6. At that time, she was asymptomatic and had not noticed that her eye s were yellow. She has noticed over the last month that she has had increasing abdominal pain when e ating, especially fatty foods. She has had some nausea as well as just right upper quadrant pain in general. Over the last 2-3 days, she developed nausea and vomiting and called me the night before th e admission because of throwing up and unable to keep the pain medicine or most foods down. She pres ented to the office on the day of the admission with abdominal pain as well as nausea and required IV hydration. Her bilirubin has gone up to 4.1 on the day of the admission and so she is admitted for further workup. Abdominal ultrasound had been ordered as an outpatient, but had not been scheduled u p until this point yet. Her weight has been stable. She does have chronic low platelets and has had some easy bruising, but no ap bleeding. PAST MEDICAL HISTORY: 1. Metastatic breast cancer to bone. 2. Chronic thrombocytopenia secondary to prior chemotherapy. CURRENT MEDICATIONS: 1. Hydrocodone 10 mg/325 one to two p.o. q.6 hours p.r.n. 2. Ranitidine 150 mg p.o. daily. 3. Vitamin D. 4. Tramadol p.r.n. ALLERGIES: PENICILLIN causes hives. SOCIAL HISTORY: She lives in [place] with her who is quite supportive. She is very active with her children and grandchildren. She denies anything other than occasional alcohol use. She esquivel s not smoke. FAMILY HISTORY: Noncontributory. No history of breast cancer. REVIEW OF SYSTEMS: Otherwise, 10-point review of systems is negative. Please see the history of pre sent illness. PHYSICAL EXAMINATION: VITAL SIGNS: She is afebrile, blood pressure is stable at 110/60. GENERAL: She is alert, awake, and oriented x3. HEENT: Sclerae are mildly icteric. She is quite pleasant. NECK: Supple, without lymphadenopathy. CARDIOVASCULAR: Regular rhythm. LUNGS: Clear to auscultation. ABDOMEN: Hypoactive bowel sounds. Soft, tender in the right upper quadrant to palpation, but withou t rebounding or guarding. EXTREMITIES: No edema. She does have some ecchymoses. LABORATORY DATA: White blood cell count 5.2, hemoglobin 11.0, platelets 35,000. Sodium 138, potassi um 3.8, chloride 104, CO2 of 20, BUN 14, creatinine 0.5, calcium 8.4, total protein 5.7, albumin 3.3, total bilirubin 4.1, it was 0.6 on 02/04, alkaline phosphatase 215, AST 262, ALT 45. ASSESSMENT: Ms. Metzger is a 57-year-old female with: 1. Metastatic breast cancer to bone with a stable PET scan on 02/26/2018. 2. Right upper quadrant pain with nausea and vomiting as well as dehydration. PLAN: I discussed the case with the inpatient physicians as well as Dr. Alcala, her gastroenterologi st. I discussed abdominal ultrasound with her as well as CT scan. She is not sure at this time she can drink the oral contrast and therefore I have ordered an abdominal ultrasound. Ultimately after t he results of that, we will decide whether or not she needs a CT scan as well as further workup. Of course, this could be gallstones or cholecystitis versus malignancy and further workup will be necess jeannie after the results of the above scans.
[2018-04-03] MEDS: HYDROcodone/Acetaminophen 10/325 mg Tablet PO PRN ×2 (03:25→22:44)
[2018-04-03] MEDS: Sodium Chloride 0.9% 1,000 ML IV SCH ×2 (05:25→18:44)
[2018-04-03 06:34] LABS: ALT (SGPT) 44 U/L (8-55); AST (SGOT) 241 U/L (5-34); Alkaline Phosphatase 189 U/L (40-150); Anion Gap 14 mmol/L (10-20); BUN (Urea Nitrogen) 10 mg/dL (9.8-20.1); Bilirubin, Total 3.5 mg/dL (0.2-1.2); Calc. Creatinine Clearance 0 mL/min (70-130); Calcium 8.2 mg/dL (7.8-10.44); Carbon Dioxide 22 mmol/L (22-29); Chloride 108 mmol/L (98-107); Estimated GFR-MDRD Greater than 90; Globulin 2.7 g/dL (2.4-3.5); Glucose 91 mg/dL (70-105); Potassium 4.5 mmol/L (3.5-5.1); Protein, Total 5.7 g/dL (6.0-8.3); Sodium 139 mmol/L (136-145)
[2018-04-03 06:47] LABS: Hemoglobin 10.3 g/dL (12.0-16.0); Mean Corpuscular HGB CONC 33.5 g/dL (32.0-36.0); Mean Corpuscular Hemoglobin 36.2 pg (27.0-31.0); Mean Platelet Volume 14.7 fL (7.4-10.4); Platelet Count 31 thou/uL (130-400); RBC Distribution Width 20.2 % (11.5-14.5); Red Blood Cell (RBC) Count 2.85 mill/uL (4.20-5.40); White Blood Cell (WBC) Count 6.7 thou/uL (4.8-10.8)
[2018-04-03 06:48] LABS: #Lymphocytes 1.1 thou/uL (1.20-3.40); #Monocytes 0.6 thou/uL (0.11-0.59); %Basophils 0.1 % (0.0-1.0); %Eosinophils 0.5 % (0.0-10.0); %Lymphocytes 16.5 % (21.0-51.0); %Monocytes 8.7 % (0.0-10.0); %Neutrophils 74.2 % (42.0-75.0)
[2018-04-03 07:04] LABS: Anisocytosis MODERATE=16-30 cells (100X) (0-5/hpf); MDiff Complete? YES; PLT Morphology Comment Appears Decreased; Polychromasia MODERATE = 3-4 cells (100X) (0-2/hpf); Reflex for Review?? YES; Schistocytes MODERATE= 6-15 cells (100X) (0-1/hpf)
--- NOTE | 2018-04-03 07:56 | ULT ---
SONOGRAM ABDOMEN COMPLETE: Date: 04/03/18 HISTORY: Abdominal pain. FINDINGS: Gallbladder incompletely distended. No stones apparent. Common duct is 0.3 cm. Liver is diffusely ech ogenic. A lobular hypoechoic, circumscribed, predominantly oval mass within the right liver lobe is 1 .5 cm. An oval ill-defined hypoechoic mass left liver lobe is 2.3 cm. Spleen is 10.5 cm. A 4.3 cm lob ular hypoechoic mass is present near the superior pole. Kidneys and visualized portions of the abdomi nal aorta, IVC, and pancreas are unremarkable. IMPRESSION: 1. No evidence of gallstones or biliary obstruction. 2. Hypoechoic lesions within the liver and spleen as detailed above. Please consider CT abdomen and pelvis, with and without IV contrast, employing a liver hemangioma protocol, for better characterizat ion. POS: YOCASTA
[2018-04-03] MEDS ORDERED: Prevnar 13-Val Conj/PF 0.5 ML SYRINGE IM ONE (09:00)
[2018-04-03] MEDS ORDERED: Furosemide 20 MG TAB PO SCH (09:00)
[2018-04-03] MEDS: Ferrous Gluconate 324 MG TAB PO SCH (09:03)
--- NOTE | 2018-04-03 13:09 | CT ---
CT ABDOMEN WITH CONTRAST CT PELVIS WITH CONTRAST: DATE: 04/03/2018 HISTORY: A 57-year-old female with metastatic lobular carcinoma of the breasts. Multiple hepatic lesions foun d on abdominal ultrasound from earlier this morning. On that ultrasound, multiple hepatic lesions we re visualized, and the radiologist's report recommended hemangioma protocol CT of the abdomen with an d without contrast. COMPARISON: There are no prior contrast enhanced CT's of the abdomen or pelvis. TECHNIQUE: IV injection of iodinated contrast media: Isovue-[id number]. Oral contrast media: Isovue p.o. Rather than a multiphase hemangioma protocol CT of the abdomen with and without contrast, only a ivory dard single venous phase scan of the abdomen and pelvis was ordered and performed. FINDINGS: There are multiple patchy, noncystic, small lesions in the liver. Most of them are peripherally loca vladimir in subcapsular locations at the left and right lobes. Some of them consist of moderately hyperde nse periphery and relatively slightly hypodense central portions, while others are entirely moderatel y hyperdense with no central hypodensity. Because of their ill defined margins, precise measurements are difficult to obtain. In hepatic segment 8, one of these lesions has a target shape appearance a nd measures approximately 1.5 cm. In hepatic segment 6, there is an approximately 4.5 x 1.5 x 3 cm l esion that is moderately hyperdense, with no central hypodense component. In hepatic segment 2 or 3, there is an approximately 3 x 3 x 1.5 cm lesion with a target shape. Ther e are other lesions that are more ill defined and therefore much more difficult to measure. These ar e unlikely to represent hemangiomas and are probably metastases. There are multiple permeative and mixed sclerotic and lytic lesions in the lumbar spine, ribs, and pe lvis, representing widespread skeletal metastases. There is diffuse anasarca. No small bowel dilation. No abdominal aortic aneurysm. No hydronephrosi s. Normal pancreas. No adrenal mass. The spleen is 10.5 x 6 x 11.5 cm. The splenic lesion found o n the ultrasound (large and hypoechoic) is not visible on this single phase CT. Sutures lines around a narrowed stomach. No small bowel dilation. Multiple mildly enlarged left upper periaortic retrop eritoneal lymph nodes, on the order of up to 1.5 cm. IMPRESSION: 1. Multiple hepatic lesions. The exact etiology is uncertain, but they are unlikely to be hemangiom as. They may be metastases, but the appearance is atypical. They were not mentioned on the PET scan report. 2. The splenic lesion found on ultrasound is not visible on this single phase CT. 3. Recommend multiphase MRI of abdomen with and without contrast, hemangioma/liver mass protocol. 4. Diffuse skeletal metastasis. 5. Status post bariatric surgery. 6. Anasarca. HUSAM Sanford POS: YOCASTA
--- NOTE | 2018-04-03 13:27 | PDOC.PN ---
- Subjective Encounter Start Date: 04/03/18 Encounter Start Time: 07:40 Pt seen for followup re: abnormal LFTs. Denies chest pain or shortness of breath. RUQ pain +, especially when lying on right side. - Objective MAR Reviewed: Yes Vital Signs & Weight: Vital Signs (12 hours) Temp Pulse Resp BP Pulse Ox 04/03/18 13:06 98 F 77 16 137/74 96 04/03/18 08:00 97.8 F 70 16 124/68 96 04/03/18 07:50 97.8 F 70 16 96 04/03/18 04:00 98.2 F 78 16 129/72 96 Weight Weight 4.674 oz I&O: 04/02/18 04/03/18 04/04/18 06:59 06:59 06:59 Intake Total 1600 Balance 1600 Result Diagrams: 04/04/18 06:39 04/04/18 06:39 Additional Labs: Labs reviewed by me Phys Exam - Physical Examination Constitutional: NAD HEENT: moist MMs scleral icterus Respiratory: clear to auscultation bilateral Cardiovascular: RRR Gastrointestinal: soft Mild RUQ tenderness Neurological: moves all 4 limbs Psychiatric: normal affect Dx/Plan (1) Abnormal LFTs Code(s): R94.5 - ABNORMAL RESULTS OF LIVER FUNCTION STUDIES Status: Acute Comment: LFTs better today. Pt had abdo US today. Follow LFTs (2) Metastatic breast cancer Code(s): C50.919 - MALIGNANT NEOPLASM OF UNSP SITE OF UNSPECIFIED FEMALE BREAST Status: Acute Comment: oncology following (3) Nausea and vomiting Code(s): R11.2 - NAUSEA WITH VOMITING, UNSPECIFIED Status: Acute Comment: PRN antiemetics (4) Dehydration Code(s): E86.0 - DEHYDRATION Status: Acute Comment: continue IV fluids - Plan * . Review of Systems - Review of Systems Respiratory: negative: Cough, Shortness of Breath, SOB with Excertion, Pleuritic Pain, Wheezing Cardiovascular: negative: chest pain, palpitations, orthopnea, paroxysmal nocturnal dyspnea, edema, light headedness Gastrointestinal: Abdominal Pain Skin: Blaine - Medications/Allergies Allergies/Adverse Reactions: Allergies Allergy/AdvReac Type Severity Reaction Status Date / Time Penicillins Allergy Hives Verified 01/09/18 15:07 Medications: Current Medications Hydrocodone Bitart/Acetaminophen ([place] 10/325) 1 tab PO Q6HR PRN PRN Reason: Severe Pain (7-10) Last Admin: 04/03/18 03:25 Dose: 1 tab Bisacodyl (Dulcolax) 10 mg PO DAILYPRN PRN PRN Reason: Constipation Calcium Carbonate (Tums) 500 mg PO QID PRN PRN Reason: GERD Last Admin: 04/02/18 23:42 Dose: 500 mg Cholecalciferol (Vitamin D3) 5,000 units PO DAILY [facility] Last Admin: 04/03/18 09:03 Dose: Not Given Famotidine (Pepcid) 20 mg PO DAILY PRN PRN Reason: GERD Last Admin: 04/02/18 23:42 Dose: 20 mg Ferrous Gluconate (Fergon) 324 mg PO DAILY [facility] Last Admin: 04/03/18 09:03 Dose: Not Given Sodium Chloride (Normal Saline 0.9%) 1,000 mls @ 75 mls/hr IV .[id number] [facility] Last Admin: 04/03/18 05:25 Dose: 1,000 mls Loratadine (Claritin) 10 mg PO DAILY PRN PRN Reason: ALLERGIES Ondansetron HCl (Zofran) 4 mg IVP Q6H PRN PRN Reason: Nausea/Vomiting Last Admin: 04/03/18 09:58 Dose: 4 mg Prochlorperazine Maleate (Compazine) 10 mg PO Q4HR PRN PRN Reason: Nausea Tizanidine HCl (Zanaflex) 2 mg PO DAILYPRN PRN PRN Reason: Muscle Pain Tramadol HCl (Ultram) 50 mg PO QID PRN PRN Reason: Moderate Pain (4-6)
[2018-04-03] MEDS ORDERED: Iopamidol 370 76% 50 ML VIAL FS ONE (15:10)
[2018-04-03] MEDS ORDERED: Iopamidol 370 76% 100 ML VIAL ONE (15:10)
[2018-04-03] MEDS ORDERED: Gadobenate Dimeglumine 529 MG/1 ML (20ML VIAL) ONE (15:16)
[2018-04-03 15:21] VITALS: BMI 23.1
--- NOTE | 2018-04-03 16:18 | MRI ---
MRI ABDOMEN WITH AND WITHOUT IV CONTRAST: 04/03/18 HISTORY: Breast cancer. FINDINGS: Correlation is made with the CT scan of the same date. There are a few tiny cysts in the liver. The enhancing lesions noted on the CT scan in the liver demo nstrate intermediate/mildly increased T2 signal and postcontrast enhancement. The enhancement pattern is not typical of hemangiomas. The spleen, pancreas, adrenal glands and kidneys are normal. No free fluid or lymphadenopathy is seen. Bilateral breast implants are present. Enhancing lesions in the bon es are consistent with metastatic disease. IMPRESSION: 1. Findings in the liver are suggestive of metastatic disease. 2. Osseous metastatic disease. POS: OFF
[2018-04-03] MEDS ORDERED: diphenhydrAMINE 25 MG CAP PO SCH ×2 (16:30→22:45)
[2018-04-03] MEDS: Famotidine 20 MG TAB PO PRN (22:44)
[2018-04-04 07:12] LABS: ALT (SGPT) 41 U/L (8-55); AST (SGOT) 221 U/L (5-34); Albumin 2.7 g/dL (3.5-5.0); Alkaline Phosphatase 186 U/L (40-150); Anion Gap 11 mmol/L (10-20); BUN (Urea Nitrogen) 12 mg/dL (9.8-20.1); Bilirubin, Total 3.5 mg/dL (0.2-1.2); Calc. Creatinine Clearance 108 mL/min (70-130); Calcium 8.6 mg/dL (7.8-10.44); Carbon Dioxide 22 mmol/L (22-29); Chloride 110 mmol/L (98-107); Estimated GFR-MDRD Greater than 90; Globulin 2.2 g/dL (2.4-3.5); Glucose 70 mg/dL (70-105); Potassium 3.7 mmol/L (3.5-5.1); Protein, Total 4.9 g/dL (6.0-8.3); Sodium 139 mmol/L (136-145)
[2018-04-04 07:29] LABS: Hemoglobin 10.2 g/dL (12.0-16.0); Mean Corpuscular HGB CONC 33.3 g/dL (32.0-36.0); Mean Corpuscular Hemoglobin 36.4 pg (27.0-31.0); Mean Platelet Volume 14.8 fL (7.4-10.4); Platelet Count 24 thou/uL (130-400); RBC Distribution Width 20.6 % (11.5-14.5); Red Blood Cell (RBC) Count 2.81 mill/uL (4.20-5.40); White Blood Cell (WBC) Count 6.1 thou/uL (4.8-10.8)
[2018-04-04 07:58] LABS: Anisocytosis MODERATE=16-30 cells (100X) (0-5/hpf); Band 9 % (5-11); Bite Cells SLIGHT = 2-5 cells (100X) (0-1/hpf); Lymphocytes 30 % (21-51); MDiff Complete? YES; Monocytes 5 % (0-10); Myelocyte 1 % (0-0); Neutrophil 52 % (42-75); Nucleated RBC 3 % (0); PLT Morphology Comment Appears Decreased; Polychromasia SLIGHT = 2-3 cells (100X) (0-2/hpf); Reactive Lymphocytes 2 % (0-10); Schistocytes SLIGHT = 2-5 cells (100X) (0-1/hpf)
[2018-04-04 08:01] VITALS: BP 130/71; TEMP 98.3
[2018-04-04] MEDS: Sodium Chloride 0.9% 1,000 ML IV SCH (09:17)
[2018-04-04] MEDS: Ferrous Gluconate 324 MG TAB PO SCH (09:17)
--- NOTE | 2018-04-04 11:44 | CON ---
DATE OF CONSULTATION: 04/03/2018 REASON FOR CONSULTATION: Abnormal liver enzymes, abnormal liver imaging. HISTORY OF PRESENT ILLNESS: Ms. Metzger is a 57-year-old female with metastatic breast cancer. She the right breast, she had chemotherapy, neomycin, cisplatin, Taxol, and bilateral mastectomy in 06/2017. She had radiation post-surgical and was started on Arimidex. After that CAT scan with a cute intracranial changes and was found to have a bony mets in the skull and then mets to the bone of the axial and pelvic regions and ribs. More recently, she started Keytruda one dose and began to ross ve some vague right upper quadrant pain, just some stomach burning at times. She tried some Protonix , it was felt this actually made her reflux worse. She states this has been an early experience and after her gastric sleeve surgery with Dr. Stockton several years ago. Therefore, she had just been us ing Tums. She has lost about 20 pounds in the past several months by report from the 150s down to 13 0s. Her labs were notable for mildly elevated MCV in the past several months and she had mildly elevated alkaline phosphatase in 01/22/2018 of 173, which was attributed to her bone mets. On 03/22/2018, she had an elevation of bilirubin of 2.6 and AST of 196, ALT of 48, alkaline phosphatase of 170. This i s the first time her AST, ALT, bilirubin are bit elevated. With this admission, she was brought in a nd had a bilirubin of 4.1 with AST of 262 and ALT of 45, and alkaline phosphatase is 215. She had an ultrasound of upper quadrant which showed a normal common bile duct and possible liver lesions, thre e-phase CT scan of the liver was recommended by the radiologist but only a one-phase CT was ordered a nd this showed again concern for some liver lesions, but really nothing could be discerned in terms o f flow or enhancement earlier late phase and was recommended either CT repeated with hemangioma johann col and MRI. An MRI was then performed today, which showed multiple small lesions scattered througho ut the liver with enhancement pattern, increased T2 signal post-contrast enhancement was felt to be n ot typical of hemangiomas and more typical of malignancy. I have been informed that the patient had a PET scan in the outpatient setting, weeks ago that was no rmal. Discussed with the Radiology and they do indicate that sometimes small metastatic lesions do n ot show up well on a PET. Presently, she states she also has nausea at times and the pain does not relate to meals. Sometimes, she can eat some spicy chicken wings and feel fine, another time she gets coughing. She has some ep igastric discomfort. She had no melena, hematochezia. She denies any fever or chills. PAST MEDICAL HISTORY: Metastatic breast cancer, chronic thrombocytopenia related to chemo, previous obesity with gastric sleeve. PAST SURGICAL HISTORY: Double mastectomy, MediPort, bladder mesh, facial lift, and hysterectomy. ALLERGIES: PENICILLIN. FAMILY HISTORY: Father of [place] at 52. SOCIAL HISTORY: The patient does not smoke, drink, or use drugs. HOME MEDICATIONS: Tums, sertraline, vitamin D, ferrous gluconate, furosemide, [place], Zofran, Phenerg an, ranitidine, tizanidine, tramadol. REVIEW OF SYSTEMS: In record, review of systems, she notes that the past several days, she has had d ark urine. She denies any pruritus. PHYSICAL EXAMINATION: VITAL SIGNS: Temperature 98.1, pulse 69, blood pressure 135/76. She is not pleuritic when detected. GENERAL: She is resting comfortably in bed. She is in no distress, looks a little flush in appearan ce. LUNGS: Clear. HEART: Regular rate and rhythm without murmurs, rubs, or gallops. ABDOMEN: Soft, nontender with no palpable hepatosplenomegaly. There is no tenderness in palpating o n to the right rib margin and I do not feel enlarged liver. EXTREMITIES: No clubbing, cyanosis or edema. LABORATORY STUDIES: Sodium 139, potassium 4.5, bicarbonate 22, chloride 108, BUN and creatinine are 10 and 0.5. Bilirubin is 3.5 down from 4.1. AST and ALT are 241 and 44, alkaline phosphatase is 189 , albumin is 3.0. White count 6.7, hemoglobin 10.3, platelet count 31,000. Imaging studies as per H PI, all reviewed with Radiology this evening. ASSESSMENT: Marked increased elevation of liver enzymes recently with CT scan finding showing some n ew liver lesions, which confirmed on MRI and very concerning per Radiology for metastatic disease. T here is no evidence of portal or hepatic vein thrombosis. There is noted to have thickened gallbladd er, but ductal dilatation. As far as her symptoms, I suspect they probably are related to the metast atic liver disease. She has had dense metastatic bone disease. Differential diagnosis could still i nclude acalculous cholecystitis as she is on chemotherapy and her elevated liver enzymes could be rel ated in some way to previous chemotherapeutic agents. RECOMMENDATIONS: 1. If there is doubt regarding the liver lesions and in light of the recent PET scan on part of Onco logy, the simplest thing to do would be to get an ultrasound or CT guided liver biopsy. 2. With regard to her discomfort, I think this is probably related to her liver mets and overall dis ease burden. There does not appear to be any acute cholecystitis or chronic cholecystitis. We could do HIDA scan to make sure the biliary tree empties fully and the gallbladder dysfunction; however, w e are going to do that after got involved surgery in her plan first, as I do not think they wanted to just perform an elective cholecystectomy for pain. I think in the overall grand scheme of things, f urther workup should be done with biopsy of the liver lesions first and confirm metastatic disease an d nothing probably explained most of her symptoms as well. I will discuss with Dr. Stapleton in the mo rning.
--- NOTE | 2018-04-04 13:53 | DIS ---
DATE OF ADMISSION: 04/02/2018 DATE OF DISCHARGE: 04/04/2018 PRIMARY CARE PHYSICIAN: Rajendra Mills D.O. DISCHARGE DIAGNOSES: 1. Liver metastases. 2. Abnormal liver function test. CONDITION OF PATIENT ON THE DAY OF DISCHARGE: Stable. I assessed Ms. Metzger on the day of discharge. She denies any chest pain or shortness of breath. Vital signs are stable. S1 and S2 are heard, regular. Lungs are clear to auscultation bilaterally. CONSULTATIONS DURING THIS HOSPITALIZATION: Oncology, Dr. Stapleton. DISCHARGE MEDICATIONS: Pain medications as prescribed by Dr. Stapleton. In addition, she will resume her preadmission home medications as dictated on my history and physical note dated 04/02/2018. HOSPITAL COURSE: Ms. Metzger is a pleasant 57-year-old lady who was admitted to [facility] on 04/02/2018 for abnormal liver function test. Please refer to my history and physic al note dated 04/02/2018 for further details. Abdominal ultrasound done on 04/03/2018 showed hypoech oic lesions within the liver and spleen. A CT scan of the abdomen and pelvis done with contrast show ed multiple hepatic lesions. The splenic lesion found on ultrasound was not visible on the single-ph ase CT. She also had diffuse skeletal metastases and anasarca. She went to have MRI of the abdomen, which showed liver findings suggestive of metastatic disease as well as osseous metastatic disease. She will be followed up as outpatient by Medical Oncology Service for further management. Many thanks for allowing me to participate in your patient's care. Please feel free to contact me wi th any questions or concerns. DISCHARGE DESTINATION: Home. TOTAL AMOUNT OF TIME SPENT COORDINATING THIS DISCHARGE: 18 minutes.
== END 2018-04-04 10:00 | disposition home or self-care (01) | DRG 436 ==
LOC: ONC 15:55
PROVIDERS: ADMIT Internal Medicine; ATTEND Internal Medicine
DX: C78.7 Secondary malignant neoplasm of liver and intrahepatic bile duct (principal); C79.51 Secondary malignant neoplasm of bone; C50.919 Malignant neoplasm of unspecified site of unspecified female breast; E86.0 Dehydration; R74.8 Abnormal levels of other serum enzymes
CPT/HCPCS: 36415; 74177; 74183; 76700; 80053; 85025; 85060; 90471; 90670; A9579; G0009; J1642; J2405